=== PATIENT | male | born 1930 | race Caucasian/White ===

== ENCOUNTER 2016-12-05 13:00 | Outpatient (RCR) | payer MEDICARE, BC ==
[2016-12-21] MEDS ORDERED: COENZYME Q PO (17:42)
[2016-12-21] MEDS ORDERED: ASPIR LOW81 MG PO (17:42)
[2016-12-21] MEDS ORDERED: COREG 3.123.125 MG/T PO (17:42)
[2016-12-21] MEDS ORDERED: CALCIUM 600 WI1 EACH PO (17:42)
[2016-12-21] MEDS ORDERED: FISH OIL500 M1 PO (17:43)
[2016-12-21] MEDS ORDERED: BIOTENE DRY MO237 ML MM (17:43)
[2016-12-21] MEDS ORDERED: MULTI-DAY VITA1 EACH PO (17:43)
[2016-12-21] MEDS ORDERED: LASIX 20MG TABL20 MG PO (17:43)
[2016-12-21] MEDS ORDERED: PSYLLIUM0.4 GM PO (17:44)
[2016-12-21] MEDS ORDERED: PRAVACHOL 20MG20 MG PO (17:44)
[2016-12-21] MEDS ORDERED: NATURAL ZINC50 MG PO (17:45)
[2016-12-21] MEDS ORDERED: COUMADIN 5MG5 MG/TAB PO (17:45)
== END 2016-12-21 | disposition home or self-care (01) ==
LOC: PT
DX: R53.81 Other malaise (principal); R55 Syncope and collapse; I25.2 Old myocardial infarction; I25.5 Ischemic cardiomyopathy

== ENCOUNTER 2016-12-21 17:26 | Emergency (ER) | payer MEDICARE, BC ==
[2016-12-21] MEDS ORDERED: COREG 3.123.125 MG/T PO (17:42)
[2016-12-21] MEDS ORDERED: CALCIUM 600 WI1 EACH PO (17:42)
[2016-12-21] MEDS ORDERED: ASPIR LOW81 MG PO (17:42)
[2016-12-21] MEDS ORDERED: COENZYME Q PO (17:42)
[2016-12-21] MEDS ORDERED: MULTI-DAY VITA1 EACH PO (17:43)
[2016-12-21] MEDS ORDERED: BIOTENE DRY MO237 ML MM (17:43)
[2016-12-21] MEDS ORDERED: FISH OIL500 M1 PO (17:43)
[2016-12-21] MEDS ORDERED: LASIX 20MG TABL20 MG PO (17:43)
[2016-12-21] MEDS ORDERED: PRAVACHOL 20MG20 MG PO (17:44)
[2016-12-21] MEDS ORDERED: PSYLLIUM0.4 GM PO (17:44)
[2016-12-21] MEDS ORDERED: COUMADIN 5MG5 MG/TAB PO (17:45)
[2016-12-21] MEDS ORDERED: NATURAL ZINC50 MG PO (17:45)
== END 2016-12-21 21:24 | disposition expired ==
LOC: ED 17:26
DX: I46.9 Cardiac arrest, cause unspecified (principal); Z91.81 History of falling
CPT/HCPCS: J0171; J0282; J2405; J7030